=== PATIENT | female | born 1975 | race Caucasian/White ===

== ENCOUNTER 2022-09-21 04:23 | Emergency (ER) | payer OTHER, SELFPAY ==
--- NOTE | ~2022-09-21 | CT_ITS ---
Clinical Indication: Chest pain CT Scan of the Chest with Contrast: Technique: Contiguous sections were acquired throughout the chest after intravenous administration of 100 cc of Omnipaque 350. Dose reduction technique was used on this scan by utilizing automated expos ure control and iterative reconstruction technique. The dose-length product (DLP) was 254.74 mGy-cm. Findings: There is no evidence of any significant mediastinal, hilar or axillary lymphadenopathy. There is no f illing defect in the pulmonary arterial tree to suggest pulmonary embolus. There is no evidence of ao rtic dissection or aneurysm. There is no evidence of pleural or pericardial effusion. There is a 5 mm noncalcified right lower lobe pulmonary nodule (axial image 48). No other significant pulmonary abnormality identified.. Images through the upper abdomen reveal diffuse fatty infiltration of the liver. Impression: No evidence of pulmonary embolus, aortic dissection, or aortic aneurysm. 5 mm right lower lobe pulmonary nodule. According to Fleischner Society criteria, for a low-risk [place] ent, no further follow-up required. For a high-risk patient, consider 12 month follow-up CT. Diffuse fatty infiltration of liver. Reviewed, dictated and finalized at location . Impression: No evidence of pulmonary embolus, aortic dissection, or aortic aneurysm. 5 mm right lower lobe pulmonary nodule. According to Fleischner Society criteri a, for a low-risk patient, no further follow-up required. For a high-risk patie nt, consider 12 month follow-up CT. Diffuse fatty infiltration of liver.
--- NOTE | ~2022-09-21 | XR_ITS ---
Clinical Indication: Chest pain PA and lateral views of the chest: Comparison: None Findings: The lungs are clear, without evidence of focal consolidation or pleural effusion. Cardiome diastinal silhouette is within normal limits. Bones and soft tissues are unremarkable. Impression: Normal chest. Reviewed, dictated and finalized at location . Impression: Normal chest.
[2022-09-21 04:24] VITALS: BP 158/100; PULSE 90; RESP 22; TEMP 36.6; O2SAT 100
--- NOTE | 2022-09-21 04:30 | ECG_ITS ---
Measurements Intervals Paul Rate: 82 P: 35 DC: 151 QRS: 30 QRSD: 87 T: 20 QT: 386 QTc: 451 Interpretive Statements SINUS RHYTHM POOR R-WAVE PROGRESSION BORDERLINE ECG NO PREVIOUS ECG AVAILABLE FOR COMPARISON Electronically Signed On 09-21-2022 13:21:27 CDT by Devyn Ferrara M.D.
[2022-09-21 04:41] LABS: Basophils Absolute Auto 0.1 K/mm3 (0.0-0.1); Basophils Percent Auto 0.7 % (0.2-1.2); Eosinophils Absolute Auto 0.1 K/mm3 (0-0.3); Eosinophils Percent Auto 0.7 % (0-4.4); Hematocrit 38.4 % (37.0-47.0); Hemoglobin 13.2 g/dL (12.0-15.0); Immature Granulocyte Absolute 0.02 K/mm3 (0.00-0.031); Immature Granulocyte Percent A 0.3 % (0-0.5); Lymphocytes Absolute Auto 1.61 K/mm3 (0.9-3.2); Lymphocytes Percent Auto 21.2 % (18.3-44.2); Mean Corpuscular HGB Conc 34.4 g/dl (32-36); Mean Corpuscular Hemoglobin 35.3 pg (26-34); Mean Corpuscular Volume 102.7 fl (80-100); Mean Platelet Volume 9.4 fl (7.4-10.4); Monocytes Absolute Auto 0.5 K/mm3 (0.1-0.6); Monocytes Percent Auto 6.8 % (2.6-8.5); Neutrophils Absolute Auto 5.4 K/mm3 (1.3-6.7); Neutrophils Percent Auto 70.3 % (45.5-73.1); Platelet Count Result 226 k/mm3 (150-375); Red Blood Count 3.74 M/mm3 (4.2-5.4); Red Cell Distribution Width 13.3 % (11.5-14.5); White Blood Count 7.6 K/mm3 (4.5-10.0)
[2022-09-21 04:52] LABS: INR 0.9; Partial Thromboplastin Time 24.4 SECONDS (22.3-36.8)
--- NOTE | 2022-09-21 05:04 | ED.CHESTPAIN ---
HPI - Chest Pain General Chief Complaint: Chest Pain Stated Complaint: cp Time Seen by Provider: 09/21/22 04:43 Source: patient and RN notes reviewed Mode of arrival: ambulatory Limitations: no limitations History of Present Illness HPI narrative: This is a 47 year old female who presents for evaluation of chest discomfort. Patient states she has felt off for 4 to 5 months. She reports having chest discomfort that is more noticeable at night when she is laying down. She states tonight she having difficulty sleeping due to her discomfort. She reports having alot of family issues recently and stress. She reports chronic shortness of breath due to asthma but denies any worsening symptoms. She denies weight loss. She feeling cold and hot at the same time. MD complaint: chest pain Related Data Allergies Allergy/AdvReac Type Severity Reaction Status Date / Time No Known Allergies Allergy Verified 09/21/22 04:33 Review of Systems Constitutional: Constitutional: Denies weakness Cardiovascular: Cardiovascular: Reports chest pain, Denies syncope, Denies rapid heart rate, Denies irregular heart rhythm, Denies leg edema and Denies dyspnea Respiratory: Respiratory: Denies chest congestion, Denies hemoptysis, Denies excessive phlegm production and Denies dyspnea Gastrointestinal: Gastrointestinal: Denies abdominal pain, Denies hematochezia, Denies diarrhea and Denies vomiting Genitourinary: Genitourinary: Denies hematuria and Denies dysuria Musculoskeletal: Musculoskeletal: Denies joint swelling, Denies loss of height and Denies muscle weakness Neurologic: Denies syncope, Denies focal weakness and Denies weakness PMFSH Past Medical History Medical History (Updated 09/21/22 @ 07:01 by Jocelyne Hendricks MD) Patient denies medical problems Social History Social History Smoking status: Current every day smoker Alcohol intake: current Substance use type: other Other substance usage details: thc edibles Exam Const: General: no acute distress and alert Nutritional Appearance: well nourished Orientation/consciousness: patient oriented x3 Limitations: no limitations HENMT: Head: normal to inspection Eyes: EOM: EOMs intact bilaterally Neck: Neck: normal visual inspection Chest: Chest palpation & inspection: normal inspection of the chest Resp: Effort & Inspection: normal respiratory effort Auscultation: clear to auscultation bilaterally Cardio: Rate: regular rate Rhythm: regular rhythm Heart sounds: no murmurs GI: GI Palp: Yes Soft to palpation, No Tenderness to palpation present (GI), No Guarding due to palpation present (GI) and No Rigid due to palpation Auscultation: normal bowel sounds Neuro: General: patient oriented x3, moves all extremities and CN's II-XI intact bilaterally Extrem: General: normal to inspection Psych: Mental Status: mental status grossly normal Affect: normal affect Attitude: cooperative Course Reevaluation(s) Reevaluation #1: Patient presented with atypical chest pain that is mostly at night. IT is likely related to anxiety. I discussed CT shows fatty liver and lung nodule. She is ready to go home and follow up with PCP Date: 09/21/22 Time: 06:57 Vital Signs Vital signs: Vital Signs Temperature 98 F 09/21/22 04:24 Pulse Rate 90 09/21/22 04:24 Respiratory Rate 22 H 09/21/22 04:24 Blood Pressure 158/100 H 09/21/22 04:24 Pulse Oximetry 100 09/21/22 04:24 Oxygen Delivery Room Air 09/21/22 04:24 Temperature 98 F 09/21/22 04:24 Pulse Rate 82 09/21/22 05:57 Respiratory Rate 17 09/21/22 05:57 Blood Pressure 146/90 H 09/21/22 05:57 Pulse Oximetry 96 09/21/22 05:57 Oxygen Delivery Room Air 09/21/22 04:24 MDM - Chest Pain Differential Diagnosis Differential diagnosis: Likely stable angina, atypical chest pain, costochondritis, chest pain and other (PE ,anxiety, aortic) Medic
[2022-09-21 05:05] VITALS: PULSE 73
[2022-09-21] MEDS: ASPIRIN 81 MG CHEWABLE TABLET 324 MG PO (05:05)
[2022-09-21 05:10] LABS: Alanine Aminotransferase 35 U/L (6-35); Albumin Level 4.8 g/dL (3.5-5.1); Alkaline Phosphatase 67 U/L (38-126); Anion Gap 9 mmol/L (8-16); Aspartate Amino Transferase 73 U/L (14-36); Bilirubin,Total 0.9 mg/dL (0.2-1.3); Blood Urea Nitrogen 13 mg/dL (7-17); Calcium 8.9 mg/dL (8.4-10.2); Carbon Dioxide 25 mmol/L (22-30); Chloride 104 mmol/L (98-107); Estimated CRCL calculation 83 ml/min; Estimated Glomerular Filt Rate > 60; Glucose 96 mg/dL (65-110); Lipase 152 U/L (23-300); Potassium 4.6 mmol/L (3.4-5.0); Sodium 138 mmol/L (137-145); Troponin I < 0.012 ng/mL (0.000-0.034)
[2022-09-21 05:16] LABS: D Dimer 1.49 ug/mL (<0.48)
[2022-09-21 05:57] VITALS: BP 146/90; PULSE 82; RESP 17; O2SAT 96
== END 2022-09-21 07:15 | disposition home or self-care (01) ==
PROVIDERS: Emergency Provider General Practice
DX: R07.89 Other chest pain (principal); F17.200 Nicotine dependence, unspecified, uncomplicated; R94.31 Abnormal electrocardiogram [ECG] [EKG]; R91.1 Solitary pulmonary nodule; K76.0 Fatty (change of) liver, not elsewhere classified
CPT/HCPCS: 36415; 71046; 71275; 80053; 81025; 83690; 84484; 85025; 85380; 85610; 85730; 93005; 99284; A9270; Q9967